=== PATIENT | male | born 1970 | race Caucasian/White ===

== ENCOUNTER → 2016-08-17 | Outpatient (CLI) | payer OTHER ==
[~2016-08-17] MED LIST: BUPIVACAINE HCL 0.25% 10 ML VIAL As Ordered ONE; BUPIVACAINE HCL 0.25% 30 ML VIAL As Ordered ONE; FISH1000 PO; GABA300C3 PO; MELA1TAB PO; TRIAMCINOLONE ACETONIDE SUSP 40 MG/ML VIAL (J3301) As Ordered ONE; VITA-130 PO; VITA100066 PO; VITA500C10 PO; VITA500T53 PO; VITACHTA PO; VITMTA PO; [UNRECOGNIZED DRUG - CODE] PO
--- NOTE | 2016-08-22 00:55 | ECWPNPC ---
PATIENT NAME: NESSA AMARAL : 1970 GENDER: MALE VISIT DATE: 08/17/2016 DISCHARGE DATE: 08/17/16 1304 VISIT LOCKED DATE TIME: PHYSICIAN: ELANA MARCOS RESOURCE: ELANA MARCOS REASON FOR APPOINTMENT 1. TPI HISTORY OF PRESENT ILLNESS HISTORY OF PRESENT ILLNESS: PAIN THE PATIENT DESCRIBES THE PAIN... FALL RISK SCREENING: SCREENING :NO FALLS IN THE PAST YEAR CURRENT MEDICATIONS TAKING GABAPENTIN 600 MG TABLET 1 TABLET ORALLY DAILY, NOTES: 08/16/16 2100 TAKING CYMBALTA 30 MG CAPSULE DELAYED RELEASE PARTICLES 1 CAPSULE ORALLY WITH FOOD TWICE A DAY FOR PAIN, NOTES: 08/16/16 2100 TAKING GABAPENTIN 300 MG CAPSULE 1 CAPSULE ORALLY DAILY, NOTES: 08/17/16 0800 TAKING LIDOCAINE 4 % PATCH EXTERNALLY 12 HRS ON 12 HRS OFF, NOTES: 08/16/16 2130 TAKING MELATONIN 3 MG TABLET 1 TABLET AT BEDTIME NEEDED WITH FOOD ORALLY ONCE A DAY, NOTES: 08/16/16 2100 TAKING TYLENOL 325 MG TABLET 2 TABLETS NEEDED ORALLY EVERY 6 HRS, NOTES: 08/16/16 1600 TAKING VITAMIN C 500 MG CAPSULE 1 TABLET ORALLY ONCE A DAY, NOTES: 08/17/16 0800 TAKING VITAMIN D 1000 UNIT TABLET 1 TABLET ORALLY ONCE A DAY, NOTES: 08/17/16 0800 TAKING VITAMIN B-12 500 MCG TABLET 2 TABLETS ORALLY ONCE A DAY, NOTES: 08/17/16 0800 TAKING PROBIOTIC PRODUCT - PACKET 1 SHAKE ORALLY DAILY, NOTES: 08/17/16 0830 MEDICATION LIST REVIEWED AND RECONCILED WITH THE PATIENT PAST MEDICAL HISTORY MILD SLEEP APNEA HEAD TRAUMA HTN BACK PAIN ARTHRITIS DEPRESSION ANXIETY TMJ ALLERGIES PENICILLIN (FOR ALLERGIES USE ONLY): HIVES TETRACYCLINE HCL: HIVES CODEINE PHOSPHATE: HIVES ASPRIN: HTN, FEVER SOCIAL HISTORY TOBACCO USE ARE YOU A:NONSMOKER LEARNING BARRIERS / SPECIAL NEEDS ORIENTED TO PLAN OF CARE: PATIENT, PAIN MANAGEMENT PATIENT, ORIENTED TO PLAN OF CARE: PATIENT, PAIN MANAGEMENT PATIENT. NEW PATIENT PAIN DIARY TODAY'S VISITNOTES FROM 0-10, WHAT LEVEL IS YOUR PAIN TODAY?0 PAIN CLINIC PFS, CLERGY, PUBLIC HEALTH REFERRALS PFS REFERRAL NEEDED?NO CLERGY REFERRAL NEEDED?NO PUBLIC HEALTH REFERRAL NEEDED?NO WAS THE PROVIDER NOTIFIED OF ANY PERTINENT INFO?NO PFS REFERRAL NEEDED?NO CLERGY REFERRAL NEEDED?NO PUBLIC HEALTH REFERRAL NEEDED?NO WAS THE PROVIDER NOTIFIED OF ANY PERTINENT INFO?NO REVIEW OF SYSTEMS CONSTITUTIONAL: ANY CHANGE IN YOUR MEDICAL CONDITION? NO . CHILLS NO . FEVER NO . INFECTION: DO YOU HAVE NEW INFECTIONS? NO . DO YOU HAVE HISTORY OF MRSA? NO . MUSCULOSKELETAL: ANY NEW PATTERNS OF PAIN OR NUMBNESS? NO . GASTROENTEROLOGY: ANY NEW CHANGE IN BOWEL CONTROL? NO . GENITOURINARY: ANY NEW CHANGE IN BLADDER CONTROL? NO . IS THERE A CHANCE YOU COULD BE ? NO . HEMATOLOGY/LYMPH: DO YOU TAKE ANY BLOOD THINNERS? (FOR EXAMPLE- COUMADIN, PLAVIX, AGGRENOX, PLATEL, PRADAXA, OR XARELTO) NO . WHEN WAS YOUR LAST DOSE? DATE: TIME: . NEUROLOGY: HAVE YOU FALLEN IN THE PAST 6 MONTHS? NO . ANY NEW EXTREMITY NUMBNESS OR WEAKNESS? NO . CARDIOLOGY: DO YOU HAVE A PACEMAKER OR DEFIBRILLATOR? NO . RESPIRATORY: HAVE YOU BEEN SICK IN THE PAST WEEK? NO . FEVER NO . FLU LIKE SYMPTOMS? NO . COUGH NO . INTEGUMENTARY: DO YOU HAVE ANY RASHES OR OPEN SORES? NO . ALLERGIC/IMMUNO: ARE YOU ALLERGIC TO SHELLFISH OR IV DYE? NO . ANY NEW ALLERGIES? NO . PSYCHIATRIC: DO YOU HAVE THOUGHTS OF HURTING YOURSELF OR SOMEONE ELSE? NO . ARE YOU ABUSED, NEGLECTED, OR IN AN UNSAFE ENVIRONMENT? NO . ENDOCRINOLOGY: ARE YOU DIABETIC? NO . OTHER: DO YOU NEED ANY PRESCRIPTIONS? NO . IF YES, PLEASE LIST: ____ . ANY NEW PROBLEMS WITH YOUR MEDICATIONS? NO . WHEN DID YOU LAST EAT? YES 08/17/[address] ALBERT AWARE . WHEN DID YOU LAST DRINK? ____08/17/16 08 . WHAT DID YOU LAST DRINK? ____WATER . NAME OF PERSON DRIVING YOU HOME? ____MARITESS . DO YOU HAVE ANY OTHER QUESTIONS OR CONCERNS NO . REVIEWED BY: PROVIDER: . VITAL SIGNS WT 175 LBS, HT 70 IN, BMI 25.11 INDEX, BP 132/83 MM HG, HR 66 /MIN, RR 16 /MIN, TEMP 96.3 F, OXYGEN SAT % 99%, NA INITIALS SC 11:05, REVIEWED BY: MLF. ASSESSMENTS MYALGIA - M79.1 (PRIMARY) PROCEDURES PN TRIGGER POINT INJECTION WITH STEROIDS PRE PROCEDURE DIAGNOSIS 1. MYALGIA 2. PAIN AT BILATERAL NECK AREA AND LOW BACK AREA POST PROCEDURE DIAGNOSIS 1. MYALGIA 2. PAIN AT BILATERAL NECK AREA AND LOW BACK AREA PROCEDURE TRIGGER POINT INJECTION AT BILATERAL NECK AREA AND LOW BACK AREA SURGEON DR. ELANA MARCOS BURLAP ROLL COVERER NONE ANESTHESIA LOCAL PRE PROCEDURE NOTE THE PATIENT HAS A HISTORY OF CHRONIC PAIN AT THE RIGHT AND LEFT NECK AREA AND LOW BACK AREA. I EVALUATE THE PATIENT AND REVIEWED THE CHART. THERE IS EVIDENCE OF BANDS OF TISSUE WITH RESTRICTION OF MOVEMENT AND PRESENCE OF TRIGGER POINT AT THE AFFECTED AREA. I WENT OVER THE RISKS, ALTERNATIVES, AND BENEFITS ASSOCIATED WITH THIS PROCEDURE. THE PATIENT WOULD LIKE TO PROCEED AND GIVE CONSENT TO PERFORMED THE PROCEDURE. THE PATIENT DENIES UNEXPLAINABLE WEIGHT LOSS, FEVER, CHILLS, OR NEW CHANGES IN URINARY OR BOWEL CONTROL DESCRIPTION OF PROCEDURE THE PATIENT WAS BROUGHT TO THE PROCEDURE ROOM AND PLACED IN THE SITTING POSITION. THE AREA WAS CLEANED WITH ALCOHOL. THE PROCEDURE WAS DONE USING ASEPTIC STERILE TECHNIQUE. I CHECKED LATERALITY AND THE LEVEL WHERE THE PROCEDURE WAS GOING TO BE PERFORMED WITH THE PATIENT AND THE SUPPORTING STAFF AT THE MOMENT OF THE TIME OUT IN THE PROCEDURE ROOM. USING A 25-GAUGE NEEDLE, TRIGGER POINTS WERE INJECTED AT THE RIGHT AND LEFT NECK AREA AND LOW BACK AREA WITH A TOTAL OF 40 ML OF BUPIVACAINE 0.25% AND KENALOG 40 MG. THERE WAS NO EVIDENCE OF BLOOD, PARESTHESIA OR CEREBROSPINAL FLUID DURING THE PROCEDURE. THE PATIENT WAS SENT TO THE RECOVERY ROOM. THE PATIENT WAS MOVING THE EXTREMITIES AND DOING WELL. THERE WAS NO COMPLICATION DURING THE PROCEDURE POST PROCEDURE NOTE THE PATIENT WILL BE SEEN IN A FOLLOW UP IN THE NEXT FEW WEEKS. A PHOTO WAS TAKEN OF THE PATIENT'S BACK AND PATIENT WAS ADVISED TO FOLLOW UP WITH HIS PRIMARY CARE AND TOOL SHAPER SET UP OPERATOR ABOUT THE MOLE ON HIS BACK. INSTRUCTIONS WERE GIVEN, QUESTIONS WERE ANSWERED, AND THE PATIENT EXPRESSED UNDERSTANDING AND AGREES WITH THE PLAN. PROCEDURE CODES 56812 INJECT TRIGGER POINTS, =/> 3 FOLLOW UP 3 WEEKS ELECTRONICALLY SIGNED BY ELANA MARCOS MD ON 08/21/2016 AT 01:34 PM EST DISCLAIMER : THIS IS A VISIT SUMMARY EXTRACTED FROM THE [employer] CHART. IT IS NOT A COPY OF THE [employer] PROGRESS NOTE. LOCO
== END ==
LOC: M PAIN 10:40
PROVIDERS: ATTEND Anesthesiology
DX: G89.29 Other chronic pain (principal); M79.1 Myalgia; M54.2 Cervicalgia; M54.5 Low back pain; G47.30 Sleep apnea, unspecified; I10 Essential (primary) hypertension; M19.90 Unspecified osteoarthritis, unspecified site; F32.9 Major depressive disorder, single episode, unspecified; F41.9 Anxiety disorder, unspecified; M26.609 Unspecified temporomandibular joint disorder, unspecified side; Z88.0 Allergy status to penicillin; Z88.8 Allergy status to other drugs, medicaments and biological substances; Z79.899 Other long term (current) drug therapy; Z87.820 Personal history of traumatic brain injury
CPT/HCPCS: 20553; J3301

== ENCOUNTER → 2016-08-21 | Outpatient (CLI) | payer OTHER ==
[~2016-08-21] MED LIST changes: -BUPIVACAINE HCL 0.25% 10 ML VIAL As Ordered ONE; -BUPIVACAINE HCL 0.25% 30 ML VIAL As Ordered ONE; -TRIAMCINOLONE ACETONIDE SUSP 40 MG/ML VIAL (J3301) As Ordered ONE
--- NOTE | 2016-08-29 00:58 | ECWPNPC ---
PATIENT NAME: NESSA AMARAL : 1970 GENDER: MALE VISIT DATE: 08/21/2016 DISCHARGE DATE: 08/21/16 1437 VISIT LOCKED DATE TIME: PHYSICIAN: BEAR RUVALCABA RESOURCE: BEAR RUVALCABA REASON FOR APPOINTMENT 1. BACK HISTORY OF PRESENT ILLNESS HISTORY OF PRESENT ILLNESS: HERE FOR F/U AFTER TPI LAST WEEK.REPORTING NO IMPROVEMENT IN PAIN.CHIEF AREA OF PAIN IS LOW BACK WITH RADIATION INTO RIGHT LEG IN A L4/5 RADICULAR NATURE. PAIN IS AWAKENING PATIENT AT NIGHT.MRI L/S SPINE 05-30-16 REVIEWED.SHOWING PATHOLOGY AT L4/5 AFFECTING BILAT TRANSVERSE L5 NERVE ROOTS.RATING PAIN VAS8/10.STATES HE IS INMED BOARD PROCESS AND WILL BE LEAVING IN OCTOBER.WILL BE TRYING ACCUPUNCTURE ON POST AT END OF MONTH. PAIN THE PATIENT DESCRIBES THE PAIN... FALL RISK SCREENING: SCREENING :NO FALLS IN THE PAST YEAR CURRENT MEDICATIONS TAKING GABAPENTIN 600 MG TABLET 1 TABLET ORALLY BEFORE BEDTIME, NOTES: 08/16/16 2100 TAKING CYMBALTA 30 MG CAPSULE DELAYED RELEASE PARTICLES 1 CAPSULE ORALLY WITH FOOD TWICE A DAY FOR PAIN, NOTES: 08/16/16 2100 TAKING GABAPENTIN 300 MG CAPSULE 1 CAPSULE ORALLY DAILY, NOTES: 08/17/16 0800 TAKING LIDOCAINE 4 % PATCH EXTERNALLY 12 HRS ON 12 HRS OFF, NOTES: 08/16/16 2130 TAKING MELATONIN 3 MG TABLET 1 TABLET AT BEDTIME NEEDED WITH FOOD ORALLY ONCE A DAY, NOTES: 08/16/16 2100 TAKING TYLENOL 325 MG TABLET 3 TABLETS NEEDED ORALLY DAILY, NOTES: 08/16/16 1600 TAKING VITAMIN C 500 MG CAPSULE 1 TABLET ORALLY ONCE A DAY, NOTES: 08/17/16 0800 TAKING VITAMIN D 1000 UNIT TABLET 1 TABLET ORALLY ONCE A DAY, NOTES: 08/17/16 0800 TAKING VITAMIN B-12 500 MCG TABLET 2 TABLETS ORALLY ONCE A DAY, NOTES: 08/17/16 0800 TAKING PROBIOTIC PRODUCT - PACKET 1 SHAKE ORALLY TWICE DAILY, NOTES: 08/17/16 0830 TAKING FISH OIL 500 MG CAPSULE 1 CAPSULE ORALLY DAILY MEDICATION LIST REVIEWED AND RECONCILED WITH THE PATIENT PAST MEDICAL HISTORY MILD SLEEP APNEA HEAD TRAUMA HTN BACK PAIN ARTHRITIS DEPRESSION ANXIETY TMJ ALLERGIES PENICILLIN (FOR ALLERGIES USE ONLY): HIVES TETRACYCLINE HCL: HIVES CODEINE PHOSPHATE: HIVES ASPRIN: HTN, FEVER SOCIAL HISTORY GENERAL: TOBACCO USE ARE YOU A:NONSMOKER LEARNING BARRIERS / SPECIAL NEEDS ORIENTED TO PLAN OF CARE: PATIENT, PAIN MANAGEMENT PATIENT, ORIENTED TO PLAN OF CARE: PATIENT, PAIN MANAGEMENT PATIENT. NEW PATIENT PAIN DIARY TODAY'S VISITNOTES FROM 0-10, WHAT LEVEL IS YOUR PAIN TODAY?0 PAIN CLINIC PFS, CLERGY, PUBLIC HEALTH REFERRALS PFS REFERRAL NEEDED?NO CLERGY REFERRAL NEEDED?NO PUBLIC HEALTH REFERRAL NEEDED?NO WAS THE PROVIDER NOTIFIED OF ANY PERTINENT INFO?NO PFS REFERRAL NEEDED?NO CLERGY REFERRAL NEEDED?NO PUBLIC HEALTH REFERRAL NEEDED?NO WAS THE PROVIDER NOTIFIED OF ANY PERTINENT INFO?NO REVIEW OF SYSTEMS CONSTITUTIONAL: ANY CHANGE IN YOUR MEDICAL CONDITION? YES, SEEING RAILROAD CAR INSPECTOR Godwin ABEBE FOR LESION ON LEFT ARM . RECENT ILLNESS DENIES . CHILLS NO . FEVER NO . WEIGHT LOSS DENIES . INFECTION: DO YOU HAVE NEW INFECTIONS? NO . DO YOU HAVE HISTORY OF MRSA? NO . MUSCULOSKELETAL: ANY NEW PATTERNS OF PAIN OR NUMBNESS? NO . GASTROENTEROLOGY: ANY NEW CHANGE IN BOWEL CONTROL? NO . GENITOURINARY: ANY NEW CHANGE IN BLADDER CONTROL? NO . IS THERE A CHANCE YOU COULD BE ? NO . HEMATOLOGY/LYMPH: DO YOU TAKE ANY BLOOD THINNERS? (FOR EXAMPLE- COUMADIN, PLAVIX, AGGRENOX, PLATEL, PRADAXA, OR XARELTO) NO . WHEN WAS YOUR LAST DOSE? DATE: TIME: . NEUROLOGY: HAVE YOU FALLEN IN THE PAST 6 MONTHS? NO . ANY NEW EXTREMITY NUMBNESS OR WEAKNESS? NO . CARDIOLOGY: DO YOU HAVE A PACEMAKER OR DEFIBRILLATOR? NO . CHEST PAIN DENIES . SHORTNESS OF BREATH DENIES . RESPIRATORY: HAVE YOU BEEN SICK IN THE PAST WEEK? NO . FEVER NO . FLU LIKE SYMPTOMS? NO . COUGH NO, DENIES . SHORTNESS OF BREATH DENIES . INTEGUMENTARY: DO YOU HAVE ANY RASHES OR OPEN SORES? NO . ALLERGIC/IMMUNO: ARE YOU ALLERGIC TO SHELLFISH OR IV DYE? NO . ANY NEW ALLERGIES? NO . PSYCHIATRIC: DO YOU HAVE THOUGHTS OF HURTING YOURSELF OR SOMEONE ELSE? NO . ARE YOU ABUSED, NEGLECTED, OR IN AN UNSAFE ENVIRONMENT? NO . ENDOCRINOLOGY: ARE YOU DIABETIC? NO . OTHER: DO YOU NEED ANY PRESCRIPTIONS? NO . IF YES, PLEASE LIST: ____ . ANY NEW PROBLEMS WITH YOUR MEDICATIONS? NO . WHEN DID YOU LAST EAT? ____ . WHEN DID YOU LAST DRINK? ____ . WHAT DID YOU LAST DRINK? ____ . NAME OF PERSON DRIVING YOU HOME? ____ . DO YOU HAVE ANY OTHER QUESTIONS OR CONCERNS NO . REVIEWED BY: PROVIDER: BEAR WOODS . VITAL SIGNS WT 175 LBS, HT 70 IN, BMI 25.11 INDEX, BP 148/81 MM HG, HR 71 /MIN, RR 16 /MIN, TEMP 96.0 F, OXYGEN SAT % 98, NA INITIALS TL 1330. EXAMINATION GENERAL EXAMINATION: LUNGS:LUNG SOUNDS ARE CLEAR. HEART:HEART RATE REGULAR. MUSCULOSKELETAL:*, MUSCLE STRENGTH TESTING 3/5 BILATERAL LOWER EXTREMITIES. PALPATION: POSITIVE FOR PAIN OVER L/S SPINE. POSITIVE FOR PAIN OVER L/S PARASPINALS.HYPERSENSITIVE TO LIGHT TOUCH MOST AREAS OF BACK OINDICATIVE OF FIBROMYALGIA.. DIAGNOSTIC:MRI L/S [id number]-REVIEWED.. ASSESSMENTS PROTRUSION OF INTERVERTEBRAL DISC OF LUMBOSACRAL REGION - M51.27 (PRIMARY) LUMBOSACRAL RADICULOPATHY - M54.17 MYALGIA - M79.1 TREATMENT PROTRUSION OF INTERVERTEBRAL DISC OF LUMBOSACRAL REGION CAUDAL/LUMBAR EPIDURAL NOTES: OPTION FOR EPIDURAL INJECTIONS WERE DISCUSSED WITH THE PATIENT. FDA CONCERNS AND WARNING WERE REVIEWED INCLUDING THE RISK OF BLEEDING, RISK OF INFECTION, RISK OF INCREASED PAIN OR NEURALGIA, AND RISK OF PARALYSIS. PATIENT'S QUESTIONS WERE ANSWERED AND HE/SHE WISHES TO MOVE FORWARD WITH EPIDURAL INJECTION.,LUMBAR EPIDURAL INJECTION: YOUR PROCEDURE MATERIAL WAS PRINTED,WHAT IS LUMBAR EPIDURAL INJECTION? MATERIAL WAS PRINTED. LUMBOSACRAL RADICULOPATHY CAUDAL/LUMBAR EPIDURAL PROCEDURE CODES FA211 ESTABILISHED PATIENT [facility] FOLLOW UP 2WK POST (REASON: JOSEPH CHILEL) ELECTRONICALLY SIGNED BY CHUCK MUÑIZ ON 08/28/2016 AT 01:40 PM EST DISCLAIMER : THIS IS A VISIT SUMMARY EXTRACTED FROM THE [employer] CHART. IT IS NOT A COPY OF THE [employer] PROGRESS NOTE. LOCO
== END ==
LOC: M PAIN 13:20
PROVIDERS: ATTEND Nurse Practitioner Family
DX: Z09 Encounter for follow-up examination after completed treatment for conditions other than malignant neoplasm (principal); M51.27 Other intervertebral disc displacement, lumbosacral region; M54.17 Radiculopathy, lumbosacral region; M79.1 Myalgia; I10 Essential (primary) hypertension; F32.9 Major depressive disorder, single episode, unspecified; F41.9 Anxiety disorder, unspecified; M19.90 Unspecified osteoarthritis, unspecified site; G47.30 Sleep apnea, unspecified; Z88.0 Allergy status to penicillin; Z88.8 Allergy status to other drugs, medicaments and biological substances; Z79.899 Other long term (current) drug therapy; Z87.820 Personal history of traumatic brain injury; Z87.39 Personal history of other diseases of the musculoskeletal system and connective tissue

== ENCOUNTER → 2016-09-04 | Outpatient (CLI) | payer OTHER ==
[~2016-09-04] MED LIST changes: +ISOVUE-M 300 61% 15ML VIAL (Q9967) As Ordered ONE; +LIDOCAINE 1% SDV INJ 30 ML VIAL As Ordered ONE; +diazePAM 5 MG TAB As Ordered ONE; +methylPREDNISolone SUSP 40 MG/ML (DEPO-medrol) VIAL (J1030) As Ordered ONE; +oxyCODONE 5MG TAB As Ordered ONE
--- NOTE | 2016-09-04 16:02 | REP ---
Partial lumbar spine series: Two views. History: Lumbar epidural steroid injection for pain. 8 seconds of fluoroscopy time is reported. Findings: A sequence of two fluoroscopically obtained intraprocedural spot radiographs of the lumbar spine document needle position and contrast injection associated with epidural injection procedure. Signed by Brayan Alonzo MD 09/04/2016 05:15 P
--- NOTE | 2016-09-06 23:39 | ECWPNPC ---
PATIENT NAME: NESSA AMARAL : 1970 GENDER: MALE VISIT DATE: 09/04/2016 DISCHARGE DATE: 09/04/16 1448 VISIT LOCKED DATE TIME: PHYSICIAN: ELANA MARCOS RESOURCE: ELANA MARCOS REASON FOR APPOINTMENT 1. CAUDAL HISTORY OF PRESENT ILLNESS HISTORY OF PRESENT ILLNESS: PAIN THE PATIENT DESCRIBES THE PAIN... FALL RISK SCREENING: SCREENING :NO FALLS IN THE PAST YEAR CURRENT MEDICATIONS TAKING GABAPENTIN 600 MG TABLET 1 TABLET ORALLY BEFORE BEDTIME, NOTES: 1229 TAKING CYMBALTA 30 MG CAPSULE DELAYED RELEASE PARTICLES 1 CAPSULE ORALLY WITH FOOD TWICE A DAY FOR PAIN, NOTES: 09-02-161999 TAKING GABAPENTIN 300 MG CAPSULE 1 CAPSULE ORALLY DAILY, NOTES: 09-03-16799 TAKING LIDOCAINE 4 % PATCH EXTERNALLY 12 HRS ON 12 HRS OFF, NOTES: 09-03-16799 TAKING MELATONIN 3 MG TABLET 1 TABLET AT BEDTIME NEEDED WITH FOOD ORALLY ONCE A DAY, NOTES: 09-03-16799 TAKING TYLENOL 325 MG TABLET 3 TABLETS NEEDED ORALLY DAILY, NOTES: 1=1799 TAKING VITAMIN C 500 MG CAPSULE 1 TABLET ORALLY ONCE A DAY, NOTES: 09-03-16799 TAKING VITAMIN D 1000 UNIT TABLET 1 TABLET ORALLY ONCE A DAY, NOTES: 09-03-16799 TAKING VITAMIN B-12 500 MCG TABLET 2 TABLETS ORALLY ONCE A DAY, NOTES: 09-03-16799 TAKING PROBIOTIC PRODUCT - PACKET 1 SHAKE ORALLY TWICE DAILY, NOTES: 09-03-161999 TAKING FISH OIL 500 MG CAPSULE 1 CAPSULE ORALLY DAILY, NOTES: 09-03-16799 TAKING TOPAMAX 25 MG TABLET 1 TABLET ORALLY TWICE A DAY, NOTES: NEW [facility] REVIEWED AND RECONCILED WITH THE PATIENT PAST MEDICAL HISTORY MILD SLEEP APNEA HEAD TRAUMA HTN BACK PAIN ARTHRITIS DEPRESSION ANXIETY TMJ ALLERGIES PENICILLIN (FOR ALLERGIES USE ONLY): HIVES TETRACYCLINE HCL: HIVES CODEINE PHOSPHATE: HIVES ASPRIN: HTN, FEVER SOCIAL HISTORY GENERAL: TOBACCO USE ARE YOU A:NONSMOKER LEARNING BARRIERS / SPECIAL NEEDS ORIENTED TO PLAN OF CARE: PATIENT, PAIN MANAGEMENT PATIENT, ORIENTED TO PLAN OF CARE: PATIENT, PAIN MANAGEMENT PATIENT. NEW PATIENT PAIN DIARY TODAY'S VISITNOTES FROM 0-10, WHAT LEVEL IS YOUR PAIN TODAY?0 PAIN CLINIC PFS, CLERGY, PUBLIC HEALTH REFERRALS PFS REFERRAL NEEDED?NO CLERGY REFERRAL NEEDED?NO PUBLIC HEALTH REFERRAL NEEDED?NO WAS THE PROVIDER NOTIFIED OF ANY PERTINENT INFO?NO PFS REFERRAL NEEDED?NO CLERGY REFERRAL NEEDED?NO PUBLIC HEALTH REFERRAL NEEDED?NO WAS THE PROVIDER NOTIFIED OF ANY PERTINENT INFO?NO REVIEW OF SYSTEMS CONSTITUTIONAL: ANY CHANGE IN YOUR MEDICAL CONDITION? NO . CHILLS NO . FEVER NO . INFECTION: DO YOU HAVE NEW INFECTIONS? NO . DO YOU HAVE HISTORY OF MRSA? NO . MUSCULOSKELETAL: ANY NEW PATTERNS OF PAIN OR NUMBNESS? NO . GASTROENTEROLOGY: ANY NEW CHANGE IN BOWEL CONTROL? NO . GENITOURINARY: ANY NEW CHANGE IN BLADDER CONTROL? NO . IS THERE A CHANCE YOU COULD BE ? NO . HEMATOLOGY/LYMPH: DO YOU TAKE ANY BLOOD THINNERS? (FOR EXAMPLE- COUMADIN, PLAVIX, AGGRENOX, PLATEL, PRADAXA, OR XARELTO) NO . WHEN WAS YOUR LAST DOSE? DATE: TIME: . NEUROLOGY: HAVE YOU FALLEN IN THE PAST 6 MONTHS? NO . ANY NEW EXTREMITY NUMBNESS OR WEAKNESS? NO . CARDIOLOGY: DO YOU HAVE A PACEMAKER OR DEFIBRILLATOR? NO . RESPIRATORY: HAVE YOU BEEN SICK IN THE PAST WEEK? NO . FEVER NO . FLU LIKE SYMPTOMS? NO . COUGH NO . INTEGUMENTARY: DO YOU HAVE ANY RASHES OR OPEN SORES? NO . ALLERGIC/IMMUNO: ARE YOU ALLERGIC TO SHELLFISH OR IV DYE? NO . ANY NEW ALLERGIES? NO . PSYCHIATRIC: DO YOU HAVE THOUGHTS OF HURTING YOURSELF OR SOMEONE ELSE? NO . ARE YOU ABUSED, NEGLECTED, OR IN AN UNSAFE ENVIRONMENT? NO . ENDOCRINOLOGY: ARE YOU DIABETIC? NO . OTHER: DO YOU NEED ANY PRESCRIPTIONS? NO . IF YES, PLEASE LIST: ____ . ANY NEW PROBLEMS WITH YOUR MEDICATIONS? NO . WHEN DID YOU LAST EAT? [id number] . WHEN DID YOU LAST DRINK? 2099 . WHAT DID YOU LAST DRINK? WATER . NAME OF PERSON DRIVING YOU HOME? CHARLY AMARAL . DO YOU HAVE ANY OTHER QUESTIONS OR CONCERNS NO . REVIEWED BY: PROVIDER: . VITAL SIGNS WT 174 LBS, HT 70 IN, BMI 24.96 INDEX, BP 149/91 MM HG, HR 65 /MIN, RR 16 /MIN, TEMP 96.0 F, OXYGEN SAT % 99, NA INITIALS TL 1300, REVIEWED BY: PS. ASSESSMENTS INTERVERTEBRAL DISC DISORDERS WITH RADICULOPATHY, LUMBAR REGION - M51.16 (PRIMARY) PROCEDURES PRE PROCEDURE DIAGNOSIS LUMBAR DISC DISORDER WITH RADICULOPATHY POST PROCEDURE DIAGNOSIS LUMBAR DISC DISORDER WITH RADICULOPATHY PROCEDURE LUMBAR EPIDURAL STEROID INJECTION UNDER FLUOROSCOPIC GUIDANCE SURGEON DR. ELANA MARCOS SUSTAINABLE AGRICULTURE SPECIALIST NONE ANESTHESIA LOCAL PRE PROCEDURE NOTE THE PATIENT HAS A HISTORY OF CHRONIC LOW BACK PAIN. I EVALUATE THE PATIENT AND REVIEWED THE CHART. I WENT OVER THE RISKS, ALTERNATIVES, AND BENEFITS ASSOCIATED WITH THIS PROCEDURE. THE PATIENT WOULD LIKE TO PROCEED AND GIVE CONSENT TO PERFORMED THE PROCEDURE. THE PATIENT DENIES UNEXPLAINABLE WEIGHT LOSS, FEVER, CHILLS, OR NEW CHANGES IN URINARY OR BOWEL CONTROL DESCRIPTION OF PROCEDURE THE PATIENT WAS BROUGHT TO THE PROCEDURE ROOM AND PLACED IN THE PRONE POSITION. THE LUMBOSACRAL AREA WAS CLEANED WITH BETADINE SOLUTION AND DRAPED ASEPTICALLY. THE PROCEDURE WAS DONE UNDER STERILE CONDITIONS. I CHECKED LATERALITY AND THE LEVEL WHERE THE PROCEDURE WAS GOING TO BE PERFORMED WITH THE PATIENT AND THE SUPPORTING STAFF AT THE MOMENT OF THE TIME OUT IN THE PROCEDURE ROOM. UNDER FLUOROSCOPIC GUIDANCE, THE TARGET POINT WAS SELECTED AT THE INTERLAMINAR LEVEL OF L4-L5. LIDOCAINE WAS USED TO NUMB THE SKIN AND THE SUBCUTANEOUS TISSUE BELOW IT. EPIDURAL TUOHY NEEDLE, 17-GAUGE, WAS ADVANCED UNDER FLUOROSCOPIC GUIDANCE AND FOLLOWING PATIENT FEEDBACK UNTIL THE EPIDURAL SPACE WAS REACHED, 7 CM DEEP INTO THE SKIN BY THE LOSS OF RESISTANCE TECHNIQUE. ISOVUE M DYE 30%, 0.25 ML, WAS INJECTED SHOWING ADEQUATE SPREAD OF THE DYE. THEN, A SOLUTION OF 3 ML OF NORMAL SALINE WITH DEPO-MEDROL 60 MG WAS INJECTED SLOWLY FOLLOWING PATIENT FEEDBACK. THERE WAS NO EVIDENCE OF BLOOD, PARESTHESIA OR CEREBROSPINAL FLUID DURING THE PROCEDURE. THE PATIENT WAS SENT TO THE RECOVERY ROOM. THE PATIENT WAS MOVING THE EXTREMITIES AND DOING WELL. THERE WAS NO COMPLICATION DURING THE PROCEDURE. FLUOROSCOPY TIME WAS 8 SECONDS POST PROCEDURE NOTE THE PATIENT WILL BE SEEN IN A FOLLOW UP IN THE NEXT FEW WEEKS. INSTRUCTIONS WERE GIVEN, QUESTIONS WERE ANSWERED, AND THE PATIENT EXPRESSED UNDERSTANDING AND AGREES WITH THE PLAN. I, HELEN CAIN, DOCUMENTED THE ABOVE INFORMATION ACTING A SCRIBE FOR DR. MARCOS. I, DR. MARCOS, HAVE REVIEWED THE ABOVE DOCUMENT, SCRIBED BY HELEN CAIN, AND I VERIFY THAT IT IS ACCURATE DIAGNOSTIC IMAGING [facility] FLUORO GUIDE SPINE INJECTION (PAIN)[id number] PROCEDURE CODES 32832 LUMBAR/SACRAL W/ IMAGING 6045F RADXPS IN END [id number] PXD FOLLOW UP 3 WEEKS ELECTRONICALLY SIGNED BY ELANA MARCOS MD ON 09/06/2016 AT 10:15 PM EST DISCLAIMER : THIS IS A VISIT SUMMARY EXTRACTED FROM THE [employer] CHART. IT IS NOT A COPY OF THE [employer] PROGRESS NOTE. MTDD
== END ==
LOC: M PAIN 13:00
PROVIDERS: ATTEND Anesthesiology
DX: G89.29 Other chronic pain (principal); M51.16 Intervertebral disc disorders with radiculopathy, lumbar region; I10 Essential (primary) hypertension; M19.90 Unspecified osteoarthritis, unspecified site; F32.9 Major depressive disorder, single episode, unspecified; F41.9 Anxiety disorder, unspecified; Z88.0 Allergy status to penicillin; Z88.1 Allergy status to other antibiotic agents; Z88.5 Allergy status to narcotic agent; Z88.6 Allergy status to analgesic agent; Z79.899 Other long term (current) drug therapy; Z87.820 Personal history of traumatic brain injury; Z87.39 Personal history of other diseases of the musculoskeletal system and connective tissue
CPT/HCPCS: 62323; J1030; Q9967

== ENCOUNTER → 2016-09-29 | Outpatient (CLI) | payer OTHER ==
[~2016-09-29] MED LIST changes: -ISOVUE-M 300 61% 15ML VIAL (Q9967) As Ordered ONE; -LIDOCAINE 1% SDV INJ 30 ML VIAL As Ordered ONE; -diazePAM 5 MG TAB As Ordered ONE; -methylPREDNISolone SUSP 40 MG/ML (DEPO-medrol) VIAL (J1030) As Ordered ONE; -oxyCODONE 5MG TAB As Ordered ONE
--- NOTE | 2016-10-06 00:29 | ECWPNPC ---
PATIENT NAME: NESSA AMARAL : 1970 GENDER: MALE VISIT DATE: 09/29/2016 DISCHARGE DATE: 09/29/16 1602 VISIT LOCKED DATE TIME: PHYSICIAN: BEAR RUVALCABA RESOURCE: BEAR RUVALCABA REASON FOR APPOINTMENT 1. POST PROCEDURE HISTORY OF PRESENT ILLNESS HISTORY OF PRESENT ILLNESS: HERE FOR POST PROCEURE F/U.HAD LESI ON 09-04-16.REPORTS DECREASE IN LOW BACK PAIN SINCE PROCEDURE.REPORTING INCREASE IN RIGHT LEG PAIN PAST FEW WEEKS.NOW GOING DOWN TO RIGHT FOOT.CHIEF AREA OF PAIN IS NECK AND THORACIC SPINE.HAS BEEN CLEARED OF LESIONS (SEE PT DOCUMENTS)ON LOWER EXTREMITIES.RATING PAIN VAS6/10. FALL RISK SCREENING: SCREENING :NO FALLS IN THE PAST YEAR CURRENT MEDICATIONS TAKING GABAPENTIN 600 MG TABLET 1 TABLET ORALLY BEFORE BEDTIME, NOTES: 0 TAKING CYMBALTA 30 MG CAPSULE DELAYED RELEASE PARTICLES 1 CAPSULE ORALLY WITH FOOD TWICE A DAY FOR PAIN, NOTES: 09-02-161999 TAKING GABAPENTIN 300 MG CAPSULE 1 CAPSULE ORALLY BID-AM AND AFTERNOON, NOTES: 09-03-16799 TAKING LIDOCAINE 4 % PATCH EXTERNALLY 12 HRS ON 12 HRS OFF, NOTES: 09-03-16799 TAKING TYLENOL 325 MG TABLET 3 TABLETS NEEDED ORALLY EVERY 12 HRS NEEDED, NOTES: 1=1799 TAKING VITAMIN C 500 MG CAPSULE 1 TABLET ORALLY ONCE A DAY, NOTES: 09-03-16799 TAKING VITAMIN D 1000 UNIT TABLET 1 TABLET ORALLY ONCE A DAY, NOTES: 09-03-16799 TAKING VITAMIN B-12 500 MCG TABLET 2 TABLETS ORALLY ONCE A DAY, NOTES: 09-03-16799 TAKING PROBIOTIC PRODUCT - PACKET 1 SHAKE ORALLY TWICE DAILY, NOTES: 09-03-161999 TAKING FISH OIL 500 MG CAPSULE 1 CAPSULE ORALLY DAILY, NOTES: 09-03-16799 TAKING TOPAMAX 25 MG TABLET 1 TABLET ORALLY TWICE A DAY, NOTES: NEW NOT STARTING UNTIL TONIGHT DISCONTINUED MELATONIN 3 MG TABLET 1 TABLET AT BEDTIME NEEDED WITH FOOD ORALLY ONCE A DAY, NOTES: 09-03-16799 MEDICATION LIST REVIEWED AND RECONCILED WITH THE PATIENT PAST MEDICAL HISTORY MILD SLEEP APNEA HEAD TRAUMA HTN BACK PAIN ARTHRITIS DEPRESSION ANXIETY TMJ ALLERGIES PENICILLIN (FOR ALLERGIES USE ONLY): HIVES TETRACYCLINE HCL: HIVES CODEINE PHOSPHATE: HIVES ASPRIN: HTN, FEVER SOCIAL HISTORY GENERAL: TOBACCO USE ARE YOU A:NONSMOKER LEARNING BARRIERS / SPECIAL NEEDS ORIENTED TO PLAN OF CARE: PATIENT, PAIN MANAGEMENT PATIENT, ORIENTED TO PLAN OF CARE: PATIENT, PAIN MANAGEMENT PATIENT. NEW PATIENT PAIN DIARY TODAY'S VISITNOTES FROM 0-10, WHAT LEVEL IS YOUR PAIN TODAY?0 PAIN CLINIC PFS, CLERGY, PUBLIC HEALTH REFERRALS PFS REFERRAL NEEDED?NO CLERGY REFERRAL NEEDED?NO PUBLIC HEALTH REFERRAL NEEDED?NO WAS THE PROVIDER NOTIFIED OF ANY PERTINENT INFO?NO PFS REFERRAL NEEDED?NO CLERGY REFERRAL NEEDED?NO PUBLIC HEALTH REFERRAL NEEDED?NO WAS THE PROVIDER NOTIFIED OF ANY PERTINENT INFO?NO REVIEW OF SYSTEMS CONSTITUTIONAL: ANY CHANGE IN YOUR MEDICAL CONDITION? NO . CHILLS NO . FEVER NO . INFECTION: DO YOU HAVE NEW INFECTIONS? NO . DO YOU HAVE HISTORY OF MRSA? NO . MUSCULOSKELETAL: ANY NEW PATTERNS OF PAIN OR NUMBNESS? NO . GASTROENTEROLOGY: ANY NEW CHANGE IN BOWEL CONTROL? NO . GENITOURINARY: ANY NEW CHANGE IN BLADDER CONTROL? NO . IS THERE A CHANCE YOU COULD BE ? NO . HEMATOLOGY/LYMPH: DO YOU TAKE ANY BLOOD THINNERS? (FOR EXAMPLE- COUMADIN, PLAVIX, AGGRENOX, PLATEL, PRADAXA, OR XARELTO) NO . WHEN WAS YOUR LAST DOSE? DATE: TIME: . NEUROLOGY: HAVE YOU FALLEN IN THE PAST 6 MONTHS? NO . ANY NEW EXTREMITY NUMBNESS OR WEAKNESS? NO . CARDIOLOGY: DO YOU HAVE A PACEMAKER OR DEFIBRILLATOR? NO . RESPIRATORY: HAVE YOU BEEN SICK IN THE PAST WEEK? NO . FEVER NO . FLU LIKE SYMPTOMS? NO . COUGH NO . INTEGUMENTARY: DO YOU HAVE ANY RASHES OR OPEN SORES? NO . ALLERGIC/IMMUNO: ARE YOU ALLERGIC TO SHELLFISH OR IV DYE? NO . ANY NEW ALLERGIES? NO . PSYCHIATRIC: DO YOU HAVE THOUGHTS OF HURTING YOURSELF OR SOMEONE ELSE? NO . ARE YOU ABUSED, NEGLECTED, OR IN AN UNSAFE ENVIRONMENT? NO . ENDOCRINOLOGY: ARE YOU DIABETIC? NO . OTHER: DO YOU NEED ANY PRESCRIPTIONS? NO . IF YES, PLEASE LIST: ____ . ANY NEW PROBLEMS WITH YOUR MEDICATIONS? NO . WHEN DID YOU LAST EAT? ____ . WHEN DID YOU LAST DRINK? ____ . WHAT DID YOU LAST DRINK? ____ . NAME OF PERSON DRIVING YOU HOME? ____ . DO YOU HAVE ANY OTHER QUESTIONS OR CONCERNS YES &QUOT;SCIATIC PAIN HAS INCREASED&QUOT;. ? EPIDURAL INJECTIONS FOR NECK/THORACIC AREA. SCHEDULED FOR RIGHT ULNAR NERVE SURGERY 10/11/16 . REVIEWED BY: PROVIDER: BEAR WOODS . VITAL SIGNS WT 175 LBS, HT 70 IN, BMI 25.11 INDEX, BP 144/80 MM HG, HR 70 /MIN, RR 16 /MIN, TEMP 97.0 F, OXYGEN SAT % 98, NA INITIALS TL 1441, REVIEWED BY: MLF. EXAMINATION GENERAL EXAMINATION: LUNGS:LUNG SOUNDS ARE CLEAR. HEART:HEART RATE REGULAR. MUSCULOSKELETAL:*, MUSCLE STRENGTH TESTING 3/5 BILATERAL LOWER EXTREMITIES. PALPATION: POSITIVE FOR PAIN OVER L/S SPINE. POSITIVE FOR PAIN OVER L/S PARASPINALS.HYPERSENSITIVE TO LIGHT TOUCH MOST AREAS OF BACK OINDICATIVE OF FIBROMYALGIA.. DIAGNOSTIC:MRI L/S [id number]-[id number].. ASSESSMENTS PROTRUSION OF INTERVERTEBRAL DISC OF LUMBOSACRAL REGION - M51.27 (PRIMARY) LUMBOSACRAL RADICULOPATHY - M54.17 MYALGIA - M79.1 TREATMENT PROTRUSION OF INTERVERTEBRAL DISC OF LUMBOSACRAL REGION TRIGGER POINT 1-2 AREAS NOTES: TRIGGER POINT INJECTION: YOUR EXPERIENCE MATERIAL WAS PRINTED. MYALGIA TRIGGER POINT 1-2 AREAS PROCEDURE CODES FA211 ESTABILISHED PATIENT [facility] FAC[facility] CHARGE DISPOSITION & COMMUNICATION FOLLOW UP 2WK POST PROC (REASON: TPI THORACIC T9/10-T10/11) ELECTRONICALLY SIGNED BY CHUCK MUÑIZ ON 10/05/2016 AT 01:27 PM EST DISCLAIMER : THIS IS A VISIT SUMMARY EXTRACTED FROM THE [employer] CHART. IT IS NOT A COPY OF THE [employer] PROGRESS NOTE. MTDD
== END ==
LOC: M PAIN 14:40
PROVIDERS: ATTEND Nurse Practitioner Family
DX: Z09 Encounter for follow-up examination after completed treatment for conditions other than malignant neoplasm (principal); G89.29 Other chronic pain; M51.27 Other intervertebral disc displacement, lumbosacral region; M54.17 Radiculopathy, lumbosacral region; M79.1 Myalgia; I10 Essential (primary) hypertension; M19.90 Unspecified osteoarthritis, unspecified site; G47.30 Sleep apnea, unspecified; F32.9 Major depressive disorder, single episode, unspecified; F41.9 Anxiety disorder, unspecified; Z88.0 Allergy status to penicillin; Z88.1 Allergy status to other antibiotic agents; Z88.5 Allergy status to narcotic agent; Z88.6 Allergy status to analgesic agent; Z79.899 Other long term (current) drug therapy; Z87.820 Personal history of traumatic brain injury; Z87.39 Personal history of other diseases of the musculoskeletal system and connective tissue

== ENCOUNTER → 2016-11-17 | Outpatient (CLI) | payer OTHER ==
[~2016-11-17] MED LIST changes: +BUPIVACAINE HCL 0.25% 10 ML VIAL As Ordered ONE; +BUPIVACAINE HCL 0.25% 30 ML VIAL As Ordered ONE; +GABA-282 PO; -GABA300C3 PO; +TRIAMCINOLONE ACETONIDE SUSP 40 MG/ML VIAL (J3301) As Ordered ONE; +diazePAM 5 MG TAB As Ordered ONE; +oxyCODONE 5MG TAB As Ordered ONE
--- NOTE | 2016-11-26 23:55 | ECWPNPC ---
PATIENT NAME: NESSA AMARAL : 1970 GENDER: MALE VISIT DATE: 11/17/2016 DISCHARGE DATE: 11/17/16 1532 VISIT LOCKED DATE TIME: PHYSICIAN: ELANA MARCOS RESOURCE: ELANA MARCOS REASON FOR APPOINTMENT 1. THORACIC TPI HISTORY OF PRESENT ILLNESS HISTORY OF PRESENT ILLNESS: PAIN THE PATIENT DESCRIBES THE PAIN... FALL RISK SCREENING: SCREENING :NO FALLS IN THE PAST YEAR CURRENT MEDICATIONS TAKING GABAPENTIN 600 MG TABLET 1 TABLET ORALLY BEFORE BEDTIME, NOTES: 11/15/16 2200 TAKING GABAPENTIN 300 MG CAPSULE 1 CAPSULE ORALLY BID-AM AND AFTERNOON, NOTES: 11/15/16 1800 TAKING LIDOCAINE 4 % PATCH EXTERNALLY 12 HRS ON 12 HRS OFF, NOTES: > 6 MONTHS TAKING TYLENOL 325 MG TABLET 3 TABLETS NEEDED ORALLY EVERY 12 HRS NEEDED, NOTES: > 1 WEEK TAKING VITAMIN C 500 MG CAPSULE 1 TABLET ORALLY ONCE A DAY, NOTES: 11/16/16 0800 TAKING VITAMIN D 1000 UNIT TABLET 1 TABLET ORALLY ONCE A DAY, NOTES: 11-17-16 0800 TAKING VITAMIN B-12 500 MCG TABLET 2 TABLETS ORALLY ONCE A DAY, NOTES: 11/17/16 1300 TAKING PROBIOTIC PRODUCT - PACKET 1 SHAKE ORALLY TWICE DAILY, NOTES: 11/17/16 0500 TAKING FISH OIL 500 MG CAPSULE 1 CAPSULE ORALLY DAILY, NOTES: 11/17/16 1000 TAKING TOPAMAX 25 MG TABLET 1 TABLET ORALLY TWICE A DAY, NOTES: 11/15/16 2200 TAKING RIBOFLAVIN 25 MG TABLET 1 TABLET WITH A MEAL ORALLY ONCE A DAY DISCONTINUED CYMBALTA 30 MG CAPSULE DELAYED RELEASE PARTICLES 1 CAPSULE ORALLY WITH FOOD TWICE A DAY FOR PAIN, NOTES: 09-02-161999 MEDICATION LIST REVIEWED AND RECONCILED WITH THE PATIENT PAST MEDICAL HISTORY MILD SLEEP APNEA HEAD TRAUMA HTN BACK PAIN ARTHRITIS DEPRESSION ANXIETY TMJ ALLERGIES PENICILLIN (FOR ALLERGIES USE ONLY): HIVES TETRACYCLINE HCL: HIVES CODEINE PHOSPHATE: HIVES ASPIRIN: HTN, FEVER SOCIAL HISTORY GENERAL: PAIN CLINIC PFS, CLERGY, PUBLIC HEALTH REFERRALS CLERGY REFERRAL NEEDED?NO WAS THE PROVIDER NOTIFIED OF ANY PERTINENT INFO?NO PFS REFERRAL NEEDED?NO PUBLIC HEALTH REFERRAL NEEDED?NO PATIENT: ____. REVIEW OF SYSTEMS CONSTITUTIONAL: ANY CHANGE IN YOUR MEDICAL CONDITION? YES ELBOW SURGERY 10/11 . CHILLS NO . FEVER NO . INFECTION: DO YOU HAVE NEW INFECTIONS? NO . DO YOU HAVE HISTORY OF MRSA? NO . MUSCULOSKELETAL: ANY NEW PATTERNS OF PAIN OR NUMBNESS? NO . GASTROENTEROLOGY: ANY NEW CHANGE IN BOWEL CONTROL? NO . GENITOURINARY: ANY NEW CHANGE IN BLADDER CONTROL? NO . IS THERE A CHANCE YOU COULD BE ? NO . HEMATOLOGY/LYMPH: DO YOU TAKE ANY BLOOD THINNERS? (FOR EXAMPLE- COUMADIN, PLAVIX, AGGRENOX, PLATEL, PRADAXA, OR XARELTO) NO . WHEN WAS YOUR LAST DOSE? DATE: TIME: . NEUROLOGY: HAVE YOU FALLEN IN THE PAST 6 MONTHS? NO . ANY NEW EXTREMITY NUMBNESS OR WEAKNESS? NO . CARDIOLOGY: DO YOU HAVE A PACEMAKER OR DEFIBRILLATOR? NO . RESPIRATORY: HAVE YOU BEEN SICK IN THE PAST WEEK? NO . FEVER NO . FLU LIKE SYMPTOMS? NO . COUGH NO . INTEGUMENTARY: DO YOU HAVE ANY RASHES OR OPEN SORES? NO . ALLERGIC/IMMUNO: ARE YOU ALLERGIC TO SHELLFISH OR IV DYE? NO . ANY NEW ALLERGIES? NO . PSYCHIATRIC: DO YOU HAVE THOUGHTS OF HURTING YOURSELF OR SOMEONE ELSE? NO . ARE YOU ABUSED, NEGLECTED, OR IN AN UNSAFE ENVIRONMENT? NO . ENDOCRINOLOGY: ARE YOU DIABETIC? NO . OTHER: DO YOU NEED ANY PRESCRIPTIONS? NO . IF YES, PLEASE LIST: ____ . ANY NEW PROBLEMS WITH YOUR MEDICATIONS? NO . WHEN DID YOU LAST EAT? ____11/17/16 BOWL OF CEREAL 1200 . WHEN DID YOU LAST DRINK? ____11/17/16 1200 COCONUT WATER . WHAT DID YOU LAST DRINK? ____COCONUT WATER . NAME OF PERSON DRIVING YOU HOME? ____TESS . DO YOU HAVE ANY OTHER QUESTIONS OR CONCERNS NO . REVIEWED BY: PROVIDER: . VITAL SIGNS WT 175 LBS, HT 70 IN, BMI 25.11 INDEX, BP 117/64 MM HG, HR 62 /MIN, RR 16 /MIN, TEMP 98.7 F, OXYGEN SAT % 97%, SAFE IN ENV? (Y/N) YES, NA INITIALS TX 13:32, REVIEWED BY: LAS. ZARAGOZA MYALGIA - M79.1 (PRIMARY) PROCEDURES PN TRIGGER POINT INJECTION WITH STEROIDS PRE PROCEDURE DIAGNOSIS 1. MYALGIA 2. PAIN AT BILATERAL THORACIC AREA POST PROCEDURE DIAGNOSIS 1. MYALGIA 2. 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 I EVALUATE THE PATIENT AND REVIEWED THE CHART. THERE IS EVIDENCE OF BANDS OF TISSUE WITH RESTRICTION OF MOVEMENT AND PRESENCE OF TRIGGER POINT AT THE AFFECTED AREA. I WENT OVER THE RISKS, ALTERNATIVES, AND BENEFITS ASSOCIATED WITH THIS PROCEDURE. THE PATIENT WOULD LIKE TO PROCEED AND GIVE CONSENT TO PERFORMED THE PROCEDURE. THE PATIENT DENIES UNEXPLAINABLE WEIGHT LOSS, FEVER, CHILLS, OR NEW CHANGES IN URINARY OR BOWEL CONTROL DESCRIPTION OF PROCEDURE THE PATIENT WAS BROUGHT TO THE PROCEDURE ROOM AND PLACED IN THE SITTING POSITION. THE AREA WAS CLEANED WITH ALCOHOL. THE PROCEDURE WAS DONE USING ASEPTIC STERILE TECHNIQUE. I CHECKED LATERALITY AND THE LEVEL WHERE THE PROCEDURE WAS GOING TO BE PERFORMED WITH THE PATIENT AND THE SUPPORTING STAFF AT THE MOMENT OF THE TIME OUT IN THE PROCEDURE ROOM. USING A 25-GAUGE NEEDLE, TRIGGER POINTS WERE INJECTED AT THE RIGHT AND LEFT THORACIC AREA WITH A TOTAL OF 40 ML OF BUPIVACAINE 0.25% AND KENALOG 40 MG. THERE WAS NO EVIDENCE OF BLOOD, PARESTHESIA OR CEREBROSPINAL FLUID DURING THE PROCEDURE. THE PATIENT WAS SENT TO THE RECOVERY ROOM. THE PATIENT WAS MOVING THE EXTREMITIES AND DOING WELL. THERE WAS NO COMPLICATION DURING THE PROCEDURE POST PROCEDURE NOTE THE PATIENT WILL BE SEEN IN A FOLLOW UP IN THE NEXT FEW WEEKS. INSTRUCTIONS WERE GIVEN, QUESTIONS WERE ANSWERED, AND THE PATIENT EXPRESSED UNDERSTANDING AND AGREES WITH THE PLAN. I, CROW RAE, DOCUMENTED THE ABOVE INFORMATION ACTING A SCRIBE FOR DR. MARCOS. I HAVE REVIEWED THE ABOVE DOCUMENT, WRITTEN BY CRWO MOROCHO AND I VERIFY THAT IT IS ACCURATE. PROCEDURE CODES 61259 INJ TRIGGER POINT 08/14 [facility] DISPOSITION & COMMUNICATION FOLLOW UP 3 WEEKS ELECTRONICALLY SIGNED BY ELANA MARCOS MD ON 11/26/2016 AT 05:49 PM EDT DISCLAIMER : THIS IS A VISIT SUMMARY EXTRACTED FROM THE [employer] CHART. IT IS NOT A COPY OF THE [employer] PROGRESS NOTE. LOCO
== END ==
LOC: M PAIN 13:00
PROVIDERS: ATTEND Anesthesiology
DX: G89.29 Other chronic pain (principal); M79.1 Myalgia; Z79.899 Other long term (current) drug therapy; Z88.0 Allergy status to penicillin; Z88.5 Allergy status to narcotic agent; Z88.6 Allergy status to analgesic agent; Z88.8 Allergy status to other drugs, medicaments and biological substances; I10 Essential (primary) hypertension; M19.90 Unspecified osteoarthritis, unspecified site; F32.9 Major depressive disorder, single episode, unspecified; F41.9 Anxiety disorder, unspecified; M54.9 Dorsalgia, unspecified
CPT/HCPCS: 20552; J3301

== ENCOUNTER → 2016-12-11 | Outpatient (CLI) | payer OTHER ==
[~2016-12-11] MED LIST changes: -BUPIVACAINE HCL 0.25% 10 ML VIAL As Ordered ONE; -BUPIVACAINE HCL 0.25% 30 ML VIAL As Ordered ONE; -TRIAMCINOLONE ACETONIDE SUSP 40 MG/ML VIAL (J3301) As Ordered ONE; -diazePAM 5 MG TAB As Ordered ONE; -oxyCODONE 5MG TAB As Ordered ONE
--- NOTE | 2016-12-17 23:33 | ECWPNPC ---
PATIENT NAME: NESSA AMARAL : 1970 GENDER: MALE VISIT DATE: 12/11/2016 DISCHARGE DATE: 12/11/16 1608 VISIT LOCKED DATE TIME: PHYSICIAN: ELANA MARCOS RESOURCE: ELANA MARCOS REASON FOR APPOINTMENT 1. BACK PAIN HISTORY OF PRESENT ILLNESS HISTORY OF PRESENT ILLNESS: PAIN THE PATIENT DESCRIBES THE PAIN... 46 YEAR OLD MALE PATIENT WITH HISTORY OF CHRONIC BACK PAIN. PATIENT DESCRIBES THE PAIN ACHING, BURNING, SHARP, STABBING, SORE, SHOOTING, AND HAVING IT ALL THE TIME WITH A PAIN SCORE OF 9/10. 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 PATIENT HAS TRIED PHYSICAL THERAPY AND INJECTIONS AND STATES THAT BOTH HELPED MILDLY FOR SHORT PERIODS. PATIENT REPORTS RECENTLY HAVING SURGERY ON HIS LEFT SHOULDER AND RIGHT ELBOW. PATIENT RECEIVED A THORACIC TRIGGER POINT INJECTION ON 11/17/16 AND STATES THAT HE RECEIVED RELIEF FOR A FEW DAYS. CURRENTLY THE PATIENT IS USING TYLENOL, GABAPENTIN, LIDOCAINE PATCHES, AND IBUPROFEN WHICH HE STATES KEEPS HIM MOBILE AND FUNCTIONAL. PATIENT REPORTS USING A TENNS UNIT WELL TO AID IN PAIN RELIEF. PATIENT REPORTS MOVING TO [place] AT THE END OF THE MONTH AND WOULD LIKE TO MOVE FORWARD WITH ANOTHER INJECTION BEFORE LEAVING. PATIENT DENIES UNEXPLAINABLE WEIGHT LOSS, FEVER, CHILLS, NEW CHANGES ON HIS URINARY OR BOWEL CONTROL. FALL RISK SCREENING: SCREENING :NO FALLS IN THE PAST YEAR CURRENT MEDICATIONS TAKING GABAPENTIN 600 MG TABLET 1 TABLET ORALLY BEFORE BEDTIME TAKING GABAPENTIN 300 MG CAPSULE 1 CAPSULE ORALLY BID-AM AND AFTERNOON TAKING LIDOCAINE 4 % PATCH EXTERNALLY 12 HRS ON 12 HRS OFF, NOTES: > 6 MONTHS TAKING TYLENOL 325 MG TABLET 3 TABLETS NEEDED ORALLY EVERY 12 HRS NEEDED, NOTES: > 1 WEEK TAKING VITAMIN C 500 MG CAPSULE 1 TABLET ORALLY ONCE A DAY TAKING VITAMIN D 1000 UNIT TABLET 1 TABLET ORALLY ONCE A DAY TAKING VITAMIN B-12 500 MCG TABLET 2 TABLETS ORALLY ONCE A DAY TAKING PROBIOTIC PRODUCT - PACKET 1 SHAKE ORALLY TWICE DAILY TAKING FISH OIL 500 MG CAPSULE 1 CAPSULE ORALLY DAILY TAKING TOPAMAX 25 MG TABLET 1 TABLET ORALLY TWICE A DAY TAKING RIBOFLAVIN 25 MG TABLET 1 TABLET WITH A MEAL ORALLY ONCE A DAY MEDICATION LIST REVIEWED AND RECONCILED WITH THE PATIENT PAST MEDICAL HISTORY MILD SLEEP APNEA HEAD TRAUMA HTN BACK PAIN ARTHRITIS DEPRESSION ANXIETY TMJ ALLERGIES PENICILLIN (FOR ALLERGIES USE ONLY): HIVES TETRACYCLINE HCL: HIVES CODEINE PHOSPHATE: HIVES ASPIRIN: HTN, FEVER SURGICAL HISTORY NO SURGICAL HISTORY DOCUMENTED. FAMILY HISTORY NO FAMILY HISTORY DOCUMENTED. SOCIAL HISTORY GENERAL: PAIN CLINIC PFS, CLERGY, PUBLIC HEALTH REFERRALS CLERGY REFERRAL NEEDED?NO WAS THE PROVIDER NOTIFIED OF ANY PERTINENT INFO?NO PFS REFERRAL NEEDED?NO PUBLIC HEALTH REFERRAL NEEDED?NO PATIENT: ____. HOSPITALIZATION/MAJOR DIAGNOSTIC PROCEDURE NO HOSPITALIZATION HISTORY. REVIEW OF SYSTEMS CONSTITUTIONAL: ANY CHANGE IN YOUR MEDICAL CONDITION? YES, TWO RECENT SURGERIES. . CHILLS NO . FEVER NO . INFECTION: DO YOU HAVE NEW INFECTIONS? NO . DO YOU HAVE HISTORY OF MRSA? NO . MUSCULOSKELETAL: ANY NEW PATTERNS OF PAIN OR NUMBNESS? NO . GASTROENTEROLOGY: ANY NEW CHANGE IN BOWEL CONTROL? NO . GENITOURINARY: ANY NEW CHANGE IN BLADDER CONTROL? NO . IS THERE A CHANCE YOU COULD BE ? NO . HEMATOLOGY/LYMPH: DO YOU TAKE ANY BLOOD THINNERS? (FOR EXAMPLE- COUMADIN, PLAVIX, AGGRENOX, PLATEL, PRADAXA, OR XARELTO) NO . WHEN WAS YOUR LAST DOSE? DATE: TIME: . NEUROLOGY: HAVE YOU FALLEN IN THE PAST 6 MONTHS? NO . ANY NEW EXTREMITY NUMBNESS OR WEAKNESS? NO . CARDIOLOGY: DO YOU HAVE A PACEMAKER OR DEFIBRILLATOR? NO . RESPIRATORY: HAVE YOU BEEN SICK IN THE PAST WEEK? NO . FEVER NO . FLU LIKE SYMPTOMS? NO . COUGH NO . INTEGUMENTARY: DO YOU HAVE ANY RASHES OR OPEN SORES? NO . ALLERGIC/IMMUNO: ARE YOU ALLERGIC TO SHELLFISH OR IV DYE? NO . ANY NEW ALLERGIES? NO . PSYCHIATRIC: DO YOU HAVE THOUGHTS OF HURTING YOURSELF OR SOMEONE ELSE? NO . ARE YOU ABUSED, NEGLECTED, OR IN AN UNSAFE ENVIRONMENT? NO . ENDOCRINOLOGY: ARE YOU DIABETIC? NO . OTHER: DO YOU NEED ANY PRESCRIPTIONS? NO . IF YES, PLEASE LIST: ____ . ANY NEW PROBLEMS WITH YOUR MEDICATIONS? NO . WHEN DID YOU LAST EAT? ____ . WHEN DID YOU LAST DRINK? ____ . WHAT DID YOU LAST DRINK? ____ . NAME OF PERSON DRIVING YOU HOME? ____ . DO YOU HAVE ANY OTHER QUESTIONS OR CONCERNS NO . REVIEWED BY: PROVIDER: ELANA MARCOS MD . VITAL SIGNS WT 175 LBS, HT 70 IN, BMI 25.11 INDEX, BP 139/80 MM HG, HR 80 /MIN, RR 16 /MIN, TEMP 98.5 F, OXYGEN SAT % 94%, NA INITIALS AW 1443, REVIEWED BY: CM. EXAMINATION : PATIENT IS ALERT O X 3 AND COOPERATIVE. TENDERNESS IN THE BACK FROM THE CERVICAL AREA TO THE LOWER BACK AREA AND PARASPINAL MUSCLE GROUP. PATIENT ABLE TO FLEX BACK 10 DEGREES AND EXTEND 5 DEGREES WITH OBVIOUS DISCOMFORT. 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 MRI OF THE CERVICAL SPINE DONE ONE 05-30-2016 SHOWS DEGENERATIVE DISC DISEASE ALONG WITH SPINAL STENOSIS. BANDS OF TISSUE, RESTRICTION OF MOVEMENT, AND PRESENCE OF TRIGGER POINT INJECTIONS FROM THE CERVICAL AREA TO THE LOWER BACK AREA. ASSESSMENTS MYALGIA - M79.1 (PRIMARY) INTERVERTEBRAL DISC DISORDERS WITH RADICULOPATHY, LUMBAR REGION - M51.16 TREATMENT MYALGIA NOTES: WE DISCUSSED SEVERAL ISSUES WITH MR. AMARAL'S PAIN MANAGEMENT CASE. AT THIS TIME THE PATIENT WILL CONTINUE WITH THE SAME MEDICATION REGIME BEFORE. AT THIS TIME THE PATIENT STATES THAT HE WOULD LIKE TO MOVE FORWARD WITH TRIGGER POINT INJECTIONS DUE TO THE SPASTICITY HE FEELS THROUGHOUT HIS BACK. WE DISCUSSED THE RISKS, BENENFITS, AND ALTNERATIVES OF THE INJECTION AND THE PATIENT WOULD LIKE TO PROCEED AT THIS TIME. I WOULD LIKE THE PATIENT TO SIGN A RELEASE FORM TO SEND ALL MEDICAL RECORDS TO THE PROVIDER IN [place]. INSTRUCTIONS WERE GIVEN, QUESTIONS WERE ANSWERED, PATIENT REPORTS UNDERSTANDING AND AGREES WITH THE PLAN. I, HELEN CAIN, DOCUMENTED THE ABOVE INFORMATION ACTING A SCRIBE FOR DR. MARCOS. I HAVE REVIEWED THE ABOVE DOCUMENT, WRITTEN BY HELEN MOROCHO AND I VERIFY THAT IT IS ACCURATE. PREVENTIVE MEDICINE REVIEWED PRE PROCEDURE CARE AND GAVE INFO. PROCEDURE CODES FA211 ESTABILISHED PATIENT [facility] CHARGE [id number] DOC MEDS VERIFIED W/PT OR RE G8730 PAIN ASSESS POS TOOL F/U PLAN DOC DISPOSITION & COMMUNICATION FOLLOW UP TPI AFTER APPROVAL ELECTRONICALLY SIGNED BY ELANA MARCOS MD ON 12/17/2016 AT 05:11 PM EDT DISCLAIMER : THIS IS A VISIT SUMMARY EXTRACTED FROM THE [employer] CHART. IT IS NOT A COPY OF THE [employer] PROGRESS NOTE. LOCO
== END ==
LOC: M PAIN 14:20
PROVIDERS: ATTEND Anesthesiology
DX: M79.1 Myalgia (principal); M51.16 Intervertebral disc disorders with radiculopathy, lumbar region; G89.29 Other chronic pain; Z79.899 Other long term (current) drug therapy; Z88.0 Allergy status to penicillin; Z88.5 Allergy status to narcotic agent; Z88.6 Allergy status to analgesic agent; Z88.8 Allergy status to other drugs, medicaments and biological substances

== ENCOUNTER → 2016-12-13 | Outpatient (CLI) | payer OTHER ==
[~2016-12-13] MED LIST changes: +BUPIVACAINE HCL 0.25% 10 ML VIAL As Ordered ONE; +BUPIVACAINE HCL 0.25% 30 ML VIAL As Ordered ONE; +TRIAMCINOLONE ACETONIDE SUSP 40 MG/ML VIAL (J3301) As Ordered ONE
--- NOTE | 2016-12-17 23:31 | ECWPNPC ---
PATIENT NAME: NESSA AMARAL : 1970 GENDER: MALE VISIT DATE: 12/13/2016 DISCHARGE DATE: 12/13/16 1006 VISIT LOCKED DATE TIME: PHYSICIAN: ELANA MARCOS RESOURCE: ELANA MARCOS REASON FOR APPOINTMENT 1. TPI HISTORY OF PRESENT ILLNESS HISTORY OF PRESENT ILLNESS: PAIN THE PATIENT DESCRIBES THE PAIN... FALL RISK SCREENING: SCREENING :NO FALLS IN THE PAST YEAR CURRENT MEDICATIONS TAKING GABAPENTIN 600 MG TABLET 1 TABLET ORALLY BEFORE BEDTIME, NOTES: 12-12-162099 TAKING GABAPENTIN 300 MG CAPSULE 1 CAPSULE ORALLY BID-AM AND AFTERNOON, NOTES: 12-12-16 133 TAKING LIDOCAINE 4 % PATCH EXTERNALLY 12 HRS ON 12 HRS OFF, NOTES: 12-12-162099 TAKING TYLENOL 325 MG TABLET 3 TABLETS NEEDED ORALLY EVERY 12 HRS NEEDED, NOTES: 12-12-161829 TAKING VITAMIN C 500 MG CAPSULE 1 TABLET ORALLY ONCE A DAY, NOTES: 12-12-162099 TAKING VITAMIN D 1000 UNIT TABLET 1 TABLET ORALLY ONCE A DAY, NOTES: 12-12-162099 TAKING VITAMIN B-12 500 MCG TABLET 2 TABLETS ORALLY ONCE A DAY, NOTES: 12-12-162099 TAKING PROBIOTIC PRODUCT - PACKET 1 SHAKE ORALLY TWICE DAILY, NOTES: 12-12-162099 TAKING FISH OIL 500 MG CAPSULE 1 CAPSULE ORALLY DAILY, NOTES: 12-12-162099 TAKING TOPAMAX 25 MG TABLET 1 TABLET ORALLY TWICE A DAY, NOTES: 12-12-162099 TAKING RIBOFLAVIN 25 MG TABLET 1 TABLET WITH A MEAL ORALLY ONCE A DAY, NOTES: 12-12-162099 MEDICATION LIST REVIEWED AND RECONCILED WITH THE PATIENT PAST MEDICAL HISTORY MILD SLEEP APNEA HEAD TRAUMA HTN BACK PAIN ARTHRITIS DEPRESSION ANXIETY TMJ ALLERGIES PENICILLIN (FOR ALLERGIES USE ONLY): HIVES TETRACYCLINE HCL: HIVES CODEINE PHOSPHATE: HIVES ASPIRIN: HTN, FEVER REVIEW OF SYSTEMS CONSTITUTIONAL: ANY CHANGE IN YOUR MEDICAL CONDITION? NO . CHILLS NO . FEVER NO . INFECTION: DO YOU HAVE NEW INFECTIONS? NO . DO YOU HAVE HISTORY OF MRSA? NO . MUSCULOSKELETAL: ANY NEW PATTERNS OF PAIN OR NUMBNESS? NO . GASTROENTEROLOGY: ANY NEW CHANGE IN BOWEL CONTROL? NO . GENITOURINARY: ANY NEW CHANGE IN BLADDER CONTROL? NO . IS THERE A CHANCE YOU COULD BE ? NO . HEMATOLOGY/LYMPH: DO YOU TAKE ANY BLOOD THINNERS? (FOR EXAMPLE- COUMADIN, PLAVIX, AGGRENOX, PLATEL, PRADAXA, OR XARELTO) NO . WHEN WAS YOUR LAST DOSE? DATE: TIME: . NEUROLOGY: HAVE YOU FALLEN IN THE PAST 6 MONTHS? NO . ANY NEW EXTREMITY NUMBNESS OR WEAKNESS? NO . CARDIOLOGY: DO YOU HAVE A PACEMAKER OR DEFIBRILLATOR? NO . RESPIRATORY: HAVE YOU BEEN SICK IN THE PAST WEEK? NO . FEVER NO . FLU LIKE SYMPTOMS? NO . COUGH NO . INTEGUMENTARY: DO YOU HAVE ANY RASHES OR OPEN SORES? NO . ALLERGIC/IMMUNO: ARE YOU ALLERGIC TO SHELLFISH OR IV DYE? NO . ANY NEW ALLERGIES? NO . PSYCHIATRIC: DO YOU HAVE THOUGHTS OF HURTING YOURSELF OR SOMEONE ELSE? NO . ARE YOU ABUSED, NEGLECTED, OR IN AN UNSAFE ENVIRONMENT? NO . ENDOCRINOLOGY: ARE YOU DIABETIC? NO . OTHER: DO YOU NEED ANY PRESCRIPTIONS? NO . IF YES, PLEASE LIST: ____ . ANY NEW PROBLEMS WITH YOUR MEDICATIONS? NO . WHEN DID YOU LAST EAT? 12-12-16 9PM . WHEN DID YOU LAST DRINK? 12-12-16 9 PM . WHAT DID YOU LAST DRINK? 12-12-16 PM . NAME OF PERSON DRIVING YOU HOME? MARITESS . DO YOU HAVE ANY OTHER QUESTIONS OR CONCERNS NO . REVIEWED BY: PROVIDER: . VITAL SIGNS WT 175 LBS, HT 70 IN, BMI 25.11 INDEX, BP 131/87 MM HG, HR 64 /MIN, RR 16 /MIN, TEMP 98.6 F, OXYGEN SAT % 97%, NA INITIALS 0859, REVIEWED BY: CM. ASSESSMENTS MYALGIA - M79.1 (PRIMARY) PROCEDURES PN TRIGGER POINT INJECTION WITH STEROIDS PRE PROCEDURE DIAGNOSIS 1. MYALGIA 2. PAIN AT BILATERAL SHOULDER AREA AND RIGHT LOWER BACK POST PROCEDURE DIAGNOSIS 1. MYALGIA 2. 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 I EVALUATE THE PATIENT AND REVIEWED THE CHART. THERE IS EVIDENCE OF BANDS OF TISSUE WITH RESTRICTION OF MOVEMENT AND PRESENCE OF TRIGGER POINT AT THE AFFECTED AREA. I WENT OVER THE RISKS, ALTERNATIVES, AND BENEFITS ASSOCIATED WITH THIS PROCEDURE. THE PATIENT WOULD LIKE TO PROCEED AND GIVE CONSENT TO PERFORMED THE PROCEDURE. THE PATIENT DENIES UNEXPLAINABLE WEIGHT LOSS, FEVER, CHILLS, OR NEW CHANGES IN URINARY OR BOWEL CONTROL DESCRIPTION OF PROCEDURE THE PATIENT WAS BROUGHT TO THE PROCEDURE ROOM AND PLACED IN THE SITTING POSITION. THE AREA WAS CLEANED WITH ALCOHOL. THE PROCEDURE WAS DONE USING ASEPTIC STERILE TECHNIQUE. I CHECKED LATERALITY AND THE LEVEL WHERE THE PROCEDURE WAS GOING TO BE PERFORMED WITH THE PATIENT AND THE SUPPORTING STAFF AT THE MOMENT OF THE TIME OUT IN THE PROCEDURE ROOM. USING A 25-GAUGE NEEDLE, TRIGGER POINTS WERE INJECTED AT THE RIGHT AND LEFT SHOULDER AREA AND RIGHT LOWER BACK AREA WITH A TOTAL OF 40 ML OF BUPIVACAINE 0.25% AND KENALOG 40 MG. THERE WAS NO EVIDENCE OF BLOOD, PARESTHESIA OR CEREBROSPINAL FLUID DURING THE PROCEDURE. THE PATIENT WAS SENT TO THE RECOVERY ROOM. THE PATIENT WAS MOVING THE EXTREMITIES AND DOING WELL. THERE WAS NO COMPLICATION DURING THE PROCEDURE POST PROCEDURE NOTE THE PATIENT WILL BE SEEN IN A FOLLOW UP IN THE NEXT FEW WEEKS. INSTRUCTIONS WERE GIVEN, QUESTIONS WERE ANSWERED, AND THE PATIENT EXPRESSED UNDERSTANDING AND AGREES WITH THE PLAN. I, HELEN CAIN, DOCUMENTED THE ABOVE INFORMATION ACTING A SCRIBE FOR DR. MARCOS. I HAVE REVIEWED THE ABOVE DOCUMENT, WRITTEN BY HELEN LINDSEYIBRyann AND I VERIFY THAT IT IS ACCURATE PROCEDURE CODES 58583 INJECT TRIGGER POINTS 3/> DISPOSITION & COMMUNICATION FOLLOW UP 3 WEEKS ELECTRONICALLY SIGNED BY ELANA MARCOS MD ON 12/17/2016 AT 04:57 PM EDT DISCLAIMER : THIS IS A VISIT SUMMARY EXTRACTED FROM THE [employer] CHART. IT IS NOT A COPY OF THE [employer] PROGRESS NOTE. LOCO
== END ==
LOC: M PAIN 08:30
PROVIDERS: ATTEND Anesthesiology
DX: G89.29 Other chronic pain (principal); M79.1 Myalgia; M54.5 Low back pain; M25.512 Pain in left shoulder; M25.511 Pain in right shoulder; Z79.899 Other long term (current) drug therapy; Z88.0 Allergy status to penicillin; Z88.5 Allergy status to narcotic agent; Z88.6 Allergy status to analgesic agent
CPT/HCPCS: 20553; J3301

== ENCOUNTER → 2016-12-19 | Outpatient (CLI) | payer OTHER ==
[~2016-12-19] MED LIST changes: -BUPIVACAINE HCL 0.25% 10 ML VIAL As Ordered ONE; -BUPIVACAINE HCL 0.25% 30 ML VIAL As Ordered ONE; -TRIAMCINOLONE ACETONIDE SUSP 40 MG/ML VIAL (J3301) As Ordered ONE
--- NOTE | 2017-01-03 02:05 | ECWPNPC ---
PATIENT NAME: NESSA AMARAL : 1970 GENDER: MALE VISIT DATE: 12/19/2016 DISCHARGE DATE: 12/19/16 1521 VISIT LOCKED DATE TIME: PHYSICIAN: BEAR RUVALCABA RESOURCE: BEAR RUVALCABA REASON FOR APPOINTMENT 1. POST TPI HISTORY OF PRESENT ILLNESS HISTORY OF PRESENT ILLNESS: HERE FOR F/U AND MANAGEMENT OF CHRONIC LOW BACK PAIN AND RIGHT LEG PAIN.HAD TPI AT HIS LAST VISIT AND REPORTS NO IMPROVEMENT IN PAIN EVEN FOR SHORT TERM.HAD LESI A FEW MONTHS AGO WITH SIMILIAR EFFECT.RATING PAIN VAS 6/10.DESCRIBES PAIN CONSTANT ACHING AND THROBBING. PAIN THE PATIENT DESCRIBES THE PAIN... FALL RISK SCREENING: SCREENING :NO FALLS IN THE PAST YEAR CURRENT MEDICATIONS TAKING GABAPENTIN 600 MG TABLET 1 TABLET ORALLY BEFORE BEDTIME, NOTES: 12-12-162099 TAKING GABAPENTIN 300 MG CAPSULE 1 CAPSULE ORALLY BID-AM AND AFTERNOON, NOTES: 12-12-16 133 TAKING LIDOCAINE 4 % PATCH EXTERNALLY 12 HRS ON 12 HRS OFF, NOTES: 12-12-162099 TAKING TYLENOL 325 MG TABLET 3 TABLETS NEEDED ORALLY EVERY 12 HRS NEEDED, NOTES: 12-12-16 183 TAKING VITAMIN C 500 MG CAPSULE 1 TABLET ORALLY ONCE A DAY, NOTES: 12-12-162099 TAKING VITAMIN D 1000 UNIT TABLET 1 TABLET ORALLY ONCE A DAY, NOTES: 12-12-162099 TAKING VITAMIN B-12 500 MCG TABLET 2 TABLETS ORALLY ONCE A DAY, NOTES: 12-12-162099 TAKING PROBIOTIC PRODUCT - PACKET 1 SHAKE ORALLY TWICE DAILY, NOTES: 12-12-162099 TAKING FISH OIL 500 MG CAPSULE 1 CAPSULE ORALLY DAILY, NOTES: 12-12-162099 TAKING TOPAMAX 25 MG TABLET 1 TABLET ORALLY TWICE A DAY, NOTES: 12-12-162099 TAKING RIBOFLAVIN 25 MG TABLET 1 TABLET WITH A MEAL ORALLY BID, NOTES: 12-12-162099 TAKING CYMBALTA 20 MG CAPSULE DELAYED RELEASE PARTICLES 1 CAPSULE ORALLY DAILY MEDICATION LIST REVIEWED AND RECONCILED WITH THE PATIENT PAST MEDICAL HISTORY MILD SLEEP APNEA HEAD TRAUMA HTN BACK PAIN ARTHRITIS DEPRESSION ANXIETY TMJ ALLERGIES PENICILLIN (FOR ALLERGIES USE ONLY): HIVES TETRACYCLINE HCL: HIVES CODEINE PHOSPHATE: HIVES ASPIRIN: HTN, FEVER SURGICAL HISTORY RIGHT SHOULDER SLAP TEAR 08/2015 RIGHT ULNAR TRANSPOSITION 10/2016 LEFT SHOULDER SLAP TEAR 11/2016 REVIEW OF SYSTEMS CONSTITUTIONAL: ANY CHANGE IN YOUR MEDICAL CONDITION? NO . CHILLS NO . FEVER NO . INFECTION: DO YOU HAVE NEW INFECTIONS? NO . DO YOU HAVE HISTORY OF MRSA? NO . MUSCULOSKELETAL: ANY NEW PATTERNS OF PAIN OR NUMBNESS? NO . GASTROENTEROLOGY: ANY NEW CHANGE IN BOWEL CONTROL? NO . GENITOURINARY: ANY NEW CHANGE IN BLADDER CONTROL? NO . IS THERE A CHANCE YOU COULD BE ? NO . HEMATOLOGY/LYMPH: DO YOU TAKE ANY BLOOD THINNERS? (FOR EXAMPLE- COUMADIN, PLAVIX, AGGRENOX, PLATEL, PRADAXA, OR XARELTO) NO . WHEN WAS YOUR LAST DOSE? DATE: TIME: . NEUROLOGY: HAVE YOU FALLEN IN THE PAST 6 MONTHS? NO . ANY NEW EXTREMITY NUMBNESS OR WEAKNESS? NO . CARDIOLOGY: DO YOU HAVE A PACEMAKER OR DEFIBRILLATOR? NO . RESPIRATORY: HAVE YOU BEEN SICK IN THE PAST WEEK? NO . FEVER NO . FLU LIKE SYMPTOMS? NO . COUGH NO . INTEGUMENTARY: DO YOU HAVE ANY RASHES OR OPEN SORES? NO . ALLERGIC/IMMUNO: ARE YOU ALLERGIC TO SHELLFISH OR IV DYE? NO . ANY NEW ALLERGIES? NO . PSYCHIATRIC: DO YOU HAVE THOUGHTS OF HURTING YOURSELF OR SOMEONE ELSE? NO . ARE YOU ABUSED, NEGLECTED, OR IN AN UNSAFE ENVIRONMENT? NO . ENDOCRINOLOGY: ARE YOU DIABETIC? NO . OTHER: DO YOU NEED ANY PRESCRIPTIONS? NO . IF YES, PLEASE LIST: ____ . ANY NEW PROBLEMS WITH YOUR MEDICATIONS? NO . WHEN DID YOU LAST EAT? ____ . WHEN DID YOU LAST DRINK? ____ . WHAT DID YOU LAST DRINK? ____ . NAME OF PERSON DRIVING YOU HOME? ____ . DO YOU HAVE ANY OTHER QUESTIONS OR CONCERNS NO . REVIEWED BY: PROVIDER: BEAR WOODS . VITAL SIGNS WT 173.0 LBS, HT 70 IN, BMI 24.82 INDEX, BP 134/82 MM HG, HR 68 /MIN, RR 16 /MIN, TEMP 98.3 F, OXYGEN SAT % 98%, SAFE IN ENV? (Y/N) Y, NA INITIALS TL 1426, REVIEWED BY: EM. EXAMINATION GENERAL EXAMINATION: LUNGS:LUNG SOUNDS ARE CLEAR. HEART:HEART RATE REGULAR. MUSCULOSKELETAL:*, MUSCLE STRENGTH TESTING 3/5 BILATERAL LOWER EXTREMITIES. PALPATION: POSITIVE FOR PAIN OVER L/S SPINE. POSITIVE FOR PAIN OVER L/S PARASPINALS.HYPERSENSITIVE TO LIGHT TOUCH MOST AREAS OF BACK OINDICATIVE OF FIBROMYALGIA.. DIAGNOSTIC:MRI L/S [id number]-[id number]-REVIEWED.. ASSESSMENTS PROTRUSION OF INTERVERTEBRAL DISC OF LUMBOSACRAL REGION - M51.27 (PRIMARY) LUMBOSACRAL RADICULOPATHY - M54.17 MYALGIA - M79.1 TREATMENT PROTRUSION OF INTERVERTEBRAL DISC OF LUMBOSACRAL REGION NOTES: REPORTS NO IMPROVEMENT IN PAIN WITH LESI OR TPI DONE AT PAIN CLINIC.RECOMMEND FURTHER EVALUATION AND TREATMENT FOR CHRONIC PAIN AT NEXT MEDICAL VENUE. PROCEDURE CODES FA211 ESTABILISHED PATIENT [facility] CHARGE DISPOSITION & COMMUNICATION FOLLOW UP PATIENT IS MOVING ELECTRONICALLY SIGNED BY CHUCK MUÑIZ ON 01/02/2017 AT 05:42 PM EDT DISCLAIMER : THIS IS A VISIT SUMMARY EXTRACTED FROM THE [employer] CHART. IT IS NOT A COPY OF THE [employer] PROGRESS NOTE. LOCO
== END ==
LOC: M PAIN 14:00
PROVIDERS: ATTEND Nurse Practitioner Family
DX: G89.29 Other chronic pain (principal); M51.27 Other intervertebral disc displacement, lumbosacral region; M54.17 Radiculopathy, lumbosacral region; M79.1 Myalgia; G47.30 Sleep apnea, unspecified; I10 Essential (primary) hypertension; M19.90 Unspecified osteoarthritis, unspecified site; F32.9 Major depressive disorder, single episode, unspecified; F41.9 Anxiety disorder, unspecified; Z88.0 Allergy status to penicillin; Z88.1 Allergy status to other antibiotic agents; Z88.5 Allergy status to narcotic agent; Z88.6 Allergy status to analgesic agent; Z79.899 Other long term (current) drug therapy; Z87.820 Personal history of traumatic brain injury